=== PATIENT | female | born 1975 | race Caucasian/White ===

== ENCOUNTER → 2017-08-18 10:41 | Outpatient (CLI) | payer MEDICAID ==
[2013-11-16 07:57] VITALS: BMI 33.9
[~2017-08-18 10:41] MED LIST: NORCO 10/325 TA1 TA1 PO
== END | disposition home or self-care (01) ==
LOC: D.NM 10:41
DX: R10.11 Right upper quadrant pain (principal)

== ENCOUNTER 2021-02-21 09:44 | Day surgery (SDC) | payer MEDICAID ==
[~2021-02-21] VITALS: Ht 172.7 cm; Wt 98.9 kg
--- NOTE | ~2021-02-21 | OP ---
PATIENT NAME: MARIA DE JESUS TINSLEY MEDICAL RECORD: [id number] :73 LOCATION:D.OPS ADMISSION DATE: SURGEON: TACHO SENIOR DATE OF OPERATION: 02/21/2021 SURGEON: Tacho Senior DPM PREOPERATIVE DIAGNOSES: 1. Plantar fasciitis, right foot. 2. Ingrown toenail, right great toe, medial border. 3. Ingrown toenail, third toe, right foot, lateral border. POSTOPERATIVE DIAGNOSES: 1. Plantar fasciitis, right foot. 2. Ingrown toenail, right great toe, medial border. 3. Ingrown toenail, third toe, right foot, lateral border. PROCEDURES: 1. Open partial plantar fasciotomy, right foot. 2. Partial permanent chemical matrixectomy, right great toe, medial border. 3. Partial permanent chemical matrixectomy, third toe, right foot, lateral border. ANESTHESIA: Local with monitored anesthesia care. HEMOSTASIS: Pneumatic ankle tourniquet inflated to 250 mmHg. MATERIALS: 3-0 nylon. INJECTABLES: 20 mL of a 50:50 mix of 0.25% Marcaine plain and 0.25% Marcaine with epinephrine. The patient has a longstanding history of pain associated with the right heel as well as the above-mentioned toes. We have described for her the proposed procedure. Risks and benefits were discussed. Complications were reviewed. All questions were answered. She was appropriately consented for the above-mentioned procedures. DESCRIPTION OF PROCEDURE: The patient was brought into the operating room and placed on the operating table in a supine position. A timeout was called with Dr. Senior who identified the patient, the surgical site, and the surgery to be performed. Once appropriate anesthesia was obtained, the foot was prepped and draped in the usual aseptic manner. The pneumatic ankle tourniquet was inflated to 250 mmHg around the well-padded right ankle. Attention was directed to the plantar aspect of the right heel where a 3-cm linear incision was made over the medial calcaneal tubercle. This incision was carried deep through soft tissue with care being taken to retract all vital neurovascular structures. All bleeders were cauterized along the way. At the base of this incision, the medial half of the plantar fascia was identified. Utilizing a fresh 15 blade, the medial half of the plantar fascia was sharply transected. The surgical site was then irrigated with copious amounts of normal sterile saline via bulb syringe. The plantar fascia was then inspected for any OPERATIVE REPORT [id number] MARIA DE JESUS TINSLEY remaining tight fascial bands and none were noted. The skin was reapproximated and coapted utilizing 3-0 Vicryl. A dressing consisting of antibiotic ointment and Tegaderm was then applied to the right heel. Procedure #2: Partial permanent chemical matrixectomy, right great toe, medial border. Using sterile instrumentation, the medial ingrown nail edge was split with a scalpel blade and removed from the right great toe. The area was then dried with a cotton tip. Next, a matrixectomy was performed with 10% NaOH on a cotton tip for 10 seconds to the exposed matrix. The nail groove was then flushed with copious amounts of normal sterile saline. Capillary fill time after the procedure was immediate. Triple antibiotic ointment was then applied to the toe. Procedure #3: Partial permanent chemical matrixectomy, third toe, right foot, lateral border. The exact same procedure that was performed in procedure number 2, partial permanent chemical matrixectomy (was also performed on the third toe of the right foot). The patient tolerated the procedures and anesthesia well. She left the operating room with vital signs stable and capillary fill time intact. Dressing consisting of Xeroform, 4 x 4's, Kerlix, and Eddy bandage was applied to the right foot. The patient will be discharged home with instructions to ice and elevate the right foot. She has my cell phone number for any afterhours difficulty. She was dispensed a boot to further help offload the area. There were no complications with this procedure and we will follow up with her on Wednesday of next week. TRANSINT:[id number] Voice Confirmation ID: [id number] DOCUMENT ID: [id number] TACHO SENIOR CC: [id number] DICTATION DATE: 02/21/21 1335 CIRCULATION DIRECTOR: 02/21/21 1713 [facility] 02/21/21 [id number] [place] [address]
[~2021-02-21 09:44] MED LIST changes: +COMBIGAN OPHT DR5 ML EACH EYE; +GEMFIBROZIL600 MG PO; +PRAVASTATIN SOD10 MG PO; +RISPERDAL4 MG PO; +TAPAZOLE 10 MG10 MG PO; +TRIAMTERENE-HC1 EAC6 PO; +XANAX2 MG PO
[2021-02-21 10:01] LABS: HEMATOCRIT 48.1 % (36.0-48.0); HEMOGLOBIN 16.4 g/dL (12-16); MCH 31.2 pg (26.0-34.0); MCHC 34.1 g/dL (31.0-37.0); MCV 91.4 fL (80.0-100.0); MEAN PLATELET VOLUME 7.1 fL (7.4-10.4); RBC 5.25 10x6/uL (4.00-5.40); WBC 8.2 10x3/uL (4.8-10.8)
--- NOTE | 2021-02-21 10:09 | NUR ---
REFUSES MENTAL HEALTH CONSULT. HAS A GREAT THERAPIST THAT SHE SEES AND HAS NO SUICIDE THOUGHTS NOW.
[2021-02-21 10:30] VITALS: BP 126/86; Ht 172.7 cm; Wt 98.9 kg
--- NOTE | 2021-02-21 14:26 | NUR ---
IV D/C'D WITH CANNULA INTACT, PRESSURE HELD AND DRSG PLACED. DISCHARGE INSTRUCTIONS GIVEN AND PT VERBALIZED AN UNDERSTANDING. DRSG AND BOOT IN PLACE. DISCHARGED IN STABLE CONDITION ABD WITHOUT C/O PAIN
== END 2021-02-21 14:05 | disposition home or self-care (01) ==
LOC: D.OPS 09:44
PROVIDERS: ATTEND Podiatrist
DX: M72.2 Plantar fascial fibromatosis (principal); L60.0 Ingrowing nail